=== PATIENT | male | born 1965 | race Caucasian/White ===

== ENCOUNTER 2020-01-16 16:51 | Emergency (ER) | payer BC, OTHER ==
--- NOTE | 2020-01-16 17:50 | EDM.PDOC ---
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 The patient accidentally cut his left fifth finger with a knife while cutting buns with no previous injury to this digit. He is right-handed. The patient did rinse out his laceration site with tap water and a dressing was placed prior to arrival to this facility. No other medications or treatment prior to arrival. The patient denies any chest pain/pressure, heart flutter, dizziness, orthostasis, orthopnea, diaphoresis, paresthesias, recent decreased exercise tolerance, or any other anginal-type symptoms. No recent history of abdominal pain, heartburn , nausea, diarrhea, melena, gross hematochezia, or any food intolerance, including fatty foods, etc.. The patient also denies any recent fever, cough, wheezing, dyspnea, etc.. He complains of 1/10 throbbing finger pain with no history of foreign body, paresthesias, neurological deficits, or other complaints or injuries. Onset: Today, Sudden Onset Date: 01/16/20 Onset Time: 16:30 Duration: Constant Location: Reports: Upper Extremity, Left. Denies: Head, Face, Neck, Chest, Abdomen, Back, Pelvis, Radiates to Quality: Reports: Throbbing Severity: Mild Improves with: Reports: None Worsens with: Reports: None Context: Reports: Trauma (As above) Associated Symptoms: Denies: Confusion, Chest Pain, Cough, Diaphoresis, Fever/ Chills, Headaches, Loss of Appetite, Malaise, Nausea/Vomiting, Seizure, Shortness of Breath, Syncope, Weakness Treatments APPLICATION ENGINEER: Reports: Dressing(s), Other (see below) (As above) Left Hand Pain Score (Numeric/FACES): 1 - Related Data Allergies Allergy/AdvReac Type Severity Reaction Status Date / Time No Known Allergies Allergy Verified 01/16/20 16:54 Home Meds: Home Meds Hydrochlorothiazide 0.5 tab PO DAILY 08/05/16 [History] Propranolol [Inderal] 20 mg PO DAILY 08/05/16 [History] Simvastatin [Zocor] 20 mg PO DAILY 08/05/16 [History] Valsartan 40 mg PO DAILY 08/05/16 [History] Past Medical History Cardiovascular History: Reports: High Cholesterol, Hypertension Respiratory History: Reports: COPD, Sleep Apnea, Other (See Below) Other Respiratory History: Patient is not able to tolerate his CPAP mask. Gastrointestinal History: Reports: Other (See Below) Other Gastrointestinal History: LFTs elevation with history of hepatomegaly and alcohol use as below. Musculoskeletal History: Reports: Arthritis, Back Pain, Chronic, Fracture, Osteoarthritis, Other (See Below) Other Musculoskeletal History: Right thumb fracture. Psychiatric History: Reports: Addiction, Psych Hospitalization(s), Other (See Below) Other Psychiatric History: Alcohol and tobacco use as below, including alcohol treatment as below. Endocrine/Metabolic History: Reports: Hypokalemia, Obesity/BMI 30+ Hematologic History: Reports: Anemia, Other (See Below) Other Hematologic History: Nonspecific anemia as a child. - Past Surgical History Male Surgical History: Reports: Vasectomy, Other (See Below). Denies: Circumcision Other Male Surgeries/Procedures: Vasectomy in about 1991 at age 25. - Past Imaging History Past Imaging History: Reports: Sleep Study (11/27/17) Social & Family History - Family History Cardiac: Reports: Blood Clots/VTE/DVT, CAD, High Cholesterol, Hypertension, UT, Other (See Below) Other Cardiac Family History: Father with fatal UT at age 57 possibly secondary to his IDDM. Mother with DVT. Mother and sisters 3 with hyperlipidemia. Mother and sister with hypertension. Respiratory: Reports: COPD, Other (See Below) Other Respiratory Family Hisory: Mother and maternal uncle with COPD with history of tobacco use. Endocrine/Metabolic: Reports: Diabetes, type II, IDDM, Other (See Below) Other Endocrine/Metabolic Family History: Mother with IDDM. Oncologic: Reports: Pancreatic, Other (See Below) Other Oncologic Family History: Maternal aunt with fatal pancreatic cancer at age 74 with no history of alcohol abuse. - Tobacco Use Smoking Status *Q: Current Every Day Smoker Years of Tobacco use: 34 Packs/Tins Daily: 1 Packs/Tins Daily Comment: Started smoking at age 20 with maximum use of 1.5 packs per day. Used Tobacco, but Quit: No Smoking Cessation Information Provided To Patient: Yes - Caffeine Use Caffeine Use: Reports: Soda (1012 sodas per day) - Alcohol Use Alcohol Use History: Yes Days Per Week of Alcohol Use: 4 Number of Drinks Per Day: 3 Number of Drinks Per Day Comment: Previous history of DWIs 3 with episode in 2007. Previous alcohol inpatient treatment at [facility]. Usually mixed drinks. Total Drinks Per Week: 12 Alcohol Use in Last Twelve Months: Yes - Recreational Drug Use Recreational Drug Use: No Drug Use in Last 12 Months: No - Living Situation & Occupation Living situation: Reports: (Third in 2015), (2 with 2 children from previous marriage.) Occupation: Employed (Cook at [employer]) ED ROS GENERAL - Review of Systems Review Of Systems: Comprehensive ROS is negative, except as noted in HPI. ED EXAM, SKIN/RASH Exam: See Below Exam Limited By: No Limitations General Appearance: Alert, WD/WN, No Apparent Distress Head: Atraumatic, Normocephalic Neck: Normal Inspection, Supple, Non-Tender, Full Range of Motion. No: Lymphadenopathy (L), Lymphadenopathy (R), Thyromegaly Respiratory/Chest: No Respiratory Distress, Lungs Clear, Normal Breath Sounds, No Accessory Muscle Use, Chest Non-Tender. No: Pleural Rub, Retractions Cardiovascular: Normal Peripheral Pulses, Regular Rate, Rhythm, No Edema, No Gallop, No JVD, No Murmur, No Rub. No: Gallop/S3, Gallop/S4, Friction Rub Peripheral Pulses: 2+: Radial (L), Radial (R) GI/Abdominal: Normal Bowel Sounds, Soft, Non-Tender, No Organomegaly, No Distention, No Abnormal Bruit, No Mass, Pelvis Stable, Other (Obese). No: Guarding (Male) Exam: Deferred Rectal (Males) Exam: Deferred Back Exam: Normal Inspection, Full Range of Motion. No: CVA Tenderness (L), CVA Tenderness (R), Muscle Spasm Extremities: Normal Range of Motion, No Pedal Edema, Normal Capillary Refill, Other (3 cm in length laceration over the palmar surface of the proximal phalanx of digit #5 of the left hand with no nerve, significant vascular, or skeletal involvement. No foreign body.). No: Non-Tender (Mild tenderness over laceration site), Sonia's Sign Neurological: Alert, Oriented, CN II-XII Intact, Normal Cognition, Normal Gait, No Motor/Sensory Deficits Psychiatric: Normal Affect, Normal Mood Skin: Normal Color, No Rash, Wound/Incision (As above). No: Diaphoretic Location, Skin: Upper Extremity, Left Characteristics: Other (As above) Lymphatic: No Adenopathy ED SKIN PROCEDURES - Laceration/Wound Repair Left Proximal Ventral Digit - 5th (Baby) Appearance: Subcutaneous Distal NVT: Neuro & Vascular Intact, No Tendon Injury Anesthetic Type: Local Local Anesthesia - Lidocaine (Xylocaine): 1% Plain Local Anesthetic Volume: 5cc Skin Prep: Providone-Iodine (Betadine) Saline Irrigation (cc's): 0 Exploration/Debridement/Repair: Wound Explored, In a Bloodless Field, Explored to Base, No Foreign Material Found, Multiple Flaps Aligned Closed with: Sutures Lac/Wound length In cm: 3.0 Suture Size: 4-0 # of Sutures: 8 Suture Type: Nylon, Interrupted, Simple Drain Placement: No Sterile Dressing Applied: Nurse Tetanus Status Addressed: Yes Complications: No Course - Vital Signs Last Recorded V/S: Last Vital Signs Temp 36.8 C 01/16/20 18:45 Pulse 76 01/16/20 18:45 Resp 20 01/16/20 18:45 BP 158/95 H 01/16/20 18:45 Pulse Ox 99 01/16/20 18:45 Vital Signs - 24 hr 01/16/20 01/16/20 16:55 18:45 Temperature [ 36.6 C 36.8 C Temporal] Pulse, 73 76 Peripheral [ Right Pulse Oximetry] Respiratory 16 20 Rate Blood Pressure 158/95 H [Left Upper Arm ] Blood Pressure 167/102 H [Right Upper Arm] O2 Sat by Pulse 98 99 Oximetry - Orders/Labs/Meds Orders: Active Orders 24 hr Category Date Time Status Vaccines to be Administered [RC] PER UNIT ROUTINE Care 01/16/20 17:49 Active Fingers Fifth Digit Lt F4 [CR] Stat Exams 01/16/20 17:16 Taken Obtain Past Medical Record [OM.PC] Routine Oth 01/16/20 17:16 Active Labs: None Meds: Medications Discontinued Medications Generic Name Dose Route Start Last Admin Trade Name Freq PRN Reason Stop Dose Admin Diphtheria/Tetanus/Acell Pertussis 0.5 ml 01/16/20 17:49 01/16/20 18:12 Adacel IM 01/16/20 17:50 0.5 ml .ONCE ONE Administration Lidocaine HCl 5 ml 01/16/20 17:48 01/16/20 18:12 Xylocaine-Mpf 1% INJECT 01/16/20 17:49 5 ml ONETIME ONE Administration Neomycin/Polymyxin/Bacitracin 1 each 01/16/20 17:48 01/16/20 18:12 Triple Antibiotic Oint TOP 01/16/20 17:49 1 each ONETIME ONE Administration - Radiology Interpretation Free Text/Narrative:: X-rays of digit #5 of the left hand, complete, were normal with no evidence of foreign body, fracture, dislocation, etc.. Soft tissue/laceration was noted. Departure - Departure Time of Disposition: 19:02 Disposition: Home, Self-Care 01 Condition: Good Clinical Impression: Laceration, Hypertension, Tobacco abuse counseling, Hyperlipidemia, Sleep apnea , Osteoarthritis - Discharge Information *PRESCRIPTION DRUG MONITORING PROGRAM REVIEWED*: Not Applicable *COPY OF PRESCRIPTION DRUG MONITORING REPORT IN PATIENT AVTAR: Not Applicable Instructions: Steps to Quit Smoking, [id number], Health Risks of Smoking, Laceration Care, Adult, [id number], Sutures, [place], or Adhesive Wound Closure, [id number] Referrals: PCP,Unknown [Ordering Only Provider] - Forms: ED Department Discharge, ED Return to Work/School Form Additional Instructions: 1. Followup with your regular provider in 10-14 days as directed for reevaluation and removal of 8 stitches. Bring these discharge instructions with you to that visit. 2. Continue to observe your blood pressures and pulses closely through your regular provider as discussed. Regular provider should consider possible staggering of your current medical therapy for better 24 blood pressure control as reviewed with you today. 3. Decrease caffeine intake as discussed 4. Stop all tobacco use RIGO as directed/per provided information and consider contacting Quit LIne, etc.. 5. Tylenol 650 mg by mouth every 4 hours and/or OTC ibuprofen 2-3 tabs by mouth every 6 hours with food as directed./needed. You may stagger these medications for 48-72 hours only, which essentially means that you are receiving a pain medication about every 2 hours. 6. Antibacterial soap wash/soak with subsequent antibacterial dressing such as Neosporin, etc. as directed 2 times per day until the wound or laceration site completely heals. Keep the area clean and dry with activity restrictions as discussed. Never use hydrogen peroxide for wound care. 7. Activity restrictions as discussed 8. Work excuse- See Form 9. Immediately after this visit verify that your cellular telephone's voicemail has been activated and is empty. Also verify that your home telephone 's answering machine is operating properly and has space to receive messages. Note that it is sometimes necessary for us to be able to contact you at a later date to discuss your medical care. 10. Please remember that we are ALWAYS here for you and want to answer any questions you may have. Feel free to call the hospital any time and we call you back RIGO. 11. Discuss with your regular provider your intolerance to your current CPAP mask for possible new type of mask. Sepsis Event Note - Evaluation Sepsis Screening Result: No Definite Risk - Focused Exam Vital Signs: Vital Signs Temp Pulse Resp BP BP Pulse Ox 01/16/20 18:45 36.8 C 76 20 158/95 H 99 01/16/20 16:55 36.6 C 73 16 167/102 H 98 Date Exam was Performed: 01/16/20 Time Exam was Performed: 19:14 - Problem List & Annotations (1) Laceration SNOMED Code(s): 220256240 Code(s): [id number] - Status: Acute Priority: High Current Visit: Yes Onset Date: 01/16/20 Annotation/Comment:: Excellent results with laceration repair as above. He did not know when he received his last tetanus booster. DTaP was given. Workmen's Compensation and work excuse forms were completed. Activity restrictions of wound care, etc. were discussed (2) Hypertension SNOMED Code(s): 01617915 Code(s): I10 - ESSENTIAL (PRIMARY) HYPERTENSION Status: Chronic Priority : Medium Current Visit: Yes Annotation/Comment:: Continue to observe his blood pressures closely through his regular provider, including at follow-up. Staggering of his current medical therapy was also discussed with the patient, however no medication changes until otherwise directed by his regular provider. Decreased caffeine intake was discussed. Qualifiers: Hypertension type: essential hypertension Qualified Code(s): I10 - Essential (primary) hypertension (3) Hyperlipidemia SNOMED Code(s): 60236417 Code(s): E78.5 - HYPERLIPIDEMIA, UNSPECIFIED Status: Chronic Priority: Medium Current Visit: Yes Annotation/Comment:: Under therapy. Weight loss in moderation advisable and was discussed. Decreased alcohol intake also advisable. Qualifiers: Hyperlipidemia type: unspecified Qualified Code(s): E78.5 - Hyperlipidemia , unspecified (4) Osteoarthritis SNOMED Code(s): 927229233 Code(s): M19.90 - UNSPECIFIED OSTEOARTHRITIS, UNSPECIFIED SITE Status: Chronic Priority: Medium Current Visit: Yes Annotation/Comment:: Otherwise stable by history with no history of other injuries. Qualifiers: Osteoarthritis location: multiple joints Osteoarthritis type: primary Qualified Code(s): M89.49 - Other hypertrophic osteoarthropathy, multiple sites (5) Sleep apnea SNOMED Code(s): 78749062 Code(s): G47.30 - SLEEP APNEA, UNSPECIFIED Status: Chronic Priority: Medium Current Visit: Yes Annotation/Comment:: Weight loss in moderation is advisable with patient counseled on the importance of remaining compliant with his CPAP. He will discuss a possible different mask with his regular provider at follow-up. Note significantly elevated blood pressure today. Qualifiers: Sleep apnea type: obstructive Qualified Code(s): G47.33 - Obstructive sleep apnea (adult) (pediatric) (6) Tobacco abuse counseling SNOMED Code(s): 259615463, 362182745, [id number] Code(s): Z71.6 - TOBACCO ABUSE COUNSELING Status: Chronic Priority: Medium Current Visit: Yes Annotation/Comment:: Tobacco cessation strongly encouraged with information provided at discharge. - Problem List Review Problem List Initiated/Reviewed/Updated: Yes - My Orders Last 24 Hours: My Active Orders 01/16/20 17:16 Fingers Fifth Digit Lt F4 [CR] Stat Obtain Past Medical Record [OM.PC] Routine 01/16/20 17:49 Vaccines to be Administered [RC] PER UNIT ROUTINE - Assessment/Plan Last 24 Hours: My Active Orders 01/16/20 17:16 Fingers Fifth Digit Lt F4 [CR] Stat Obtain Past Medical Record [OM.PC] Routine 01/16/20 17:49 Vaccines to be Administered [RC] PER UNIT ROUTINE Assessment:: As above Plan: As above. Extensive precautions were given to the patient, who is in agreement with the treatment plan. See Patient Instructions for further treatment and plan.
[2020-01-16] MEDS: Bacitracin/Neomycin/Polymyxin B Oint 0.9 GM U/D Packet TOP ONE (18:12)
[2020-01-16] MEDS: Diphtheria,Pertussis(Acell),Tetanus Vaccine 0.5 ML SDV IM ONE (18:12)
[2020-01-16 19:10] VITALS: BP 158/95; PULSE 76
== END 2020-01-16 19:30 | disposition home or self-care (01) ==
LOC: LL.ED 16:51
DX: S61.217A Laceration without foreign body of left little finger without damage to nail, initial encounter (principal); I10 Essential (primary) hypertension; E87.5 Hyperkalemia; M19.90 Unspecified osteoarthritis, unspecified site; G47.30 Sleep apnea, unspecified; E78.00 Pure hypercholesterolemia, unspecified; J44.9 Chronic obstructive pulmonary disease, unspecified; E66.9 Obesity, unspecified; F17.210 Nicotine dependence, cigarettes, uncomplicated; Z71.6 Tobacco abuse counseling; Z68.38 Body mass index [BMI] 38.0-38.9, adult; Z23 Encounter for immunization; Z79.899 Other long term (current) drug therapy; W26.0XXA Contact with knife, initial encounter; Y92.120 Kitchen in nursing home as the place of occurrence of the external cause; Y99.0 Civilian activity done for income or pay
CPT/HCPCS: 12002; 73140-F4; 90471; 90715; 99283-25; J2001

== ENCOUNTER 2021-10-25 14:10 | Emergency (ER) | payer BC, OTHER ==
[2021-10-25 14:14] VITALS: PULSE 74
[2021-10-25 16:00] VITALS: BP 150/87
== END 2021-10-25 14:45 | disposition home or self-care (01) ==
LOC: LL.ED 14:10
DX: I10 Essential (primary) hypertension (principal); E78.00 Pure hypercholesterolemia, unspecified; J44.9 Chronic obstructive pulmonary disease, unspecified; M19.90 Unspecified osteoarthritis, unspecified site; E66.9 Obesity, unspecified; Z68.30 Body mass index [BMI] 30.0-30.9, adult; Z79.899 Other long term (current) drug therapy
CPT/HCPCS: 99283; 99284